=== PATIENT | female | born 1945 | race Caucasian/White ===

== ENCOUNTER 2018-02-22 07:41 | Emergency (ER) | payer MEDICARE, OTHER ==
[2018-02-22 08:06] LABS: ADD MAN DIFF? NO
[2018-02-22 08:07] LABS: WHITE BLOOD COUNT 6.9 10^3/ul (4.8-10.8)
[2018-02-22 08:07] LABS: BASOPHILS % 0.6 % (0.0-2.0); EOSINOPHILS # 0.1 10^3/ul (0.0-0.5); HEMATOCRIT 37.1 % (37.0-47.0); HEMOGLOBIN 12.2 g/dl (12.0-16.0); LYMPHOCYTES # 2.4 10^3/ul (0.8-2.9); LYMPHOCYTES % 34.7 % (15.0-51.0); MEAN CORPUSCULAR HEMOGLOBIN 30.1 pg (29.0-33.0); MEAN CORPUSCULAR HGB CONC 32.9 g/dl (32.0-37.0); MEAN CORPUSCULAR VOLUME 91.6 fl (82.0-101.0); MEAN PLATELET VOLUME 10.9 fl (7.4-10.4); MONOCYTE # 0.6 10^3/ul (0.3-0.9); MONOCYTES % 8.9 % (0.0-11.0); NEUTROPHIL # 3.7 10^3/ul (1.6-7.5); NEUTROPHILS % 53.1 % (39.0-77.0); PLATELET COUNT 190 10^3/UL (140-415); RED BLOOD COUNT 4.05 10^6/ul (4.20-5.40); RED CELL DISTRIBUTION WIDTH 12.7 % (11.5-14.5)
[2018-02-22 08:33] LABS: INR 0.87; PROTIME 11.9 Sec (11.9-14.9); PT RATIO 0.9
[2018-02-22 08:34] LABS: PARTIAL THROMBOPLASTIN TIME 32.3 Sec (25.0-35.0)
[2018-02-22 08:35] LABS: ANION GAP 16 (8-16); BLOOD UREA NITROGEN 23 mg/dl (7-20); CALCIUM 9.2 mg/dl (8.4-10.2); CARBON DIOXIDE 24 mmol/L (21-31); CHLORIDE 103 mmol/L (97-110); CHOL/HDL RATIO 6.3 RATIO; CHOLESTEROL 247 mg/dl (100-200); CREATININE 0.87 mg/dl (0.44-1.00); GLUCOSE 236 mg/dl (70-220); HDL CHOLESTEROL 39 mg/dl (33-92); LDL CHOLESTEROL,CALCULATED 137 mg/dl; SODIUM 139 mmol/L (135-144); TRIGLYCERIDES 353 mg/dl (0-149)
[2018-02-22] MEDS: SOD CHLORIDE 0.9% 1,000 ML IV (08:37)
[2018-02-22] MEDS: MECLIZINE 12.5 MG TAB PO (08:37)
[2018-02-22] MEDS: ONDANSETRON 4 MG INJ IV (08:37)
[2018-02-22 08:46] LABS: TROPONIN-I < 0.010 ng/ml (0.000-0.120)
[2018-02-22 10:40] LABS: HEMOGLOBIN A1C 8.9 % (0-5.9)
== END 2018-02-22 10:10 | disposition home or self-care (01) ==
LOC: E/R 07:41
DX: R42 Dizziness and giddiness (principal); I10 Essential (primary) hypertension; E11.9 Type 2 diabetes mellitus without complications; R11.0 Nausea; R07.9 Chest pain, unspecified; Z79.84 Long term (current) use of oral hypoglycemic drugs
CPT/HCPCS: 36415; 70450; 71045; 80048; 80061; 83036; 84484; 85025; 85610; 85730; 93005; 96374; 99285-25

== ENCOUNTER 2018-08-17 04:44 | Emergency (ER) | payer MEDICARE, OTHER ==
[2018-08-17 05:47] LABS: ADD MAN DIFF? NO
[2018-08-17 06:11] LABS: ALANINE AMINOTRANSFERASE 14 IU/L (13-69); ALBUMIN 4.1 g/dl (3.3-4.9); ALBUMIN/GLOBULIN RATIO 1.07; ALKALINE PHOSPHATASE 108 IU/L (42-121); ANION GAP 9 (5-13); ASPARTATE AMINO TRANSFERASE 22 IU/L (15-46); BILIRUBIN,INDIRECT 0.2 mg/dl (0-1.1); BILIRUBIN,TOTAL 0.2 mg/dl (0.2-1.3); BLOOD UREA NITROGEN 20 mg/dl (7-20); CALCIUM 9.8 mg/dl (8.4-10.2); CARBON DIOXIDE 27 mmol/L (21-31); CHLORIDE 103 mmol/L (97-110); CHOL/HDL RATIO 6.2 RATIO; CHOLESTEROL 255 mg/dl (100-200); CREATININE 0.78 mg/dl (0.44-1.00); GLUCOSE 241 mg/dl (70-220); HDL CHOLESTEROL 41 mg/dl (33-92); LDL CHOLESTEROL,CALCULATED 170 mg/dl; POTASSIUM 4.7 mmol/L (3.5-5.1); SODIUM 139 mmol/L (135-144); TOTAL PROTEIN 7.9 g/dl (6.1-8.1); TRIGLYCERIDES 219 mg/dl (0-149)
[2018-08-17] MEDS: METOPROLOL 5 MG INJ IV ×2 (06:12→06:35)
[2018-08-17] MEDS: ONDANSETRON 4 MG INJ IV (06:17)
[2018-08-17 06:21] LABS: WHITE BLOOD COUNT 10.5 10^3/ul (4.8-10.8)
[2018-08-17 06:21] LABS: BASOPHILS % 0.3 % (0.0-2.0); EOSINOPHILS # 0.1 10^3/ul (0.0-0.5); EOSINOPHILS % 0.9 % (0.0-7.0); HEMATOCRIT 38.8 % (37.0-47.0); HEMOGLOBIN 12.5 g/dl (12.0-16.0); LYMPHOCYTES # 1.4 10^3/ul (0.8-2.9); LYMPHOCYTES % 13.5 % (15.0-51.0); MEAN CORPUSCULAR HEMOGLOBIN 30.1 pg (29.0-33.0); MEAN CORPUSCULAR HGB CONC 32.2 g/dl (32.0-37.0); MEAN CORPUSCULAR VOLUME 93.5 fl (82.0-101.0); MEAN PLATELET VOLUME 12.2 fl (7.4-10.4); MONOCYTE # 0.6 10^3/ul (0.3-0.9); MONOCYTES % 5.3 % (0.0-11.0); NEUTROPHIL # 8.4 10^3/ul (1.6-7.5); NEUTROPHILS % 79.7 % (39.0-77.0); RED BLOOD COUNT 4.15 10^6/ul (4.20-5.40); RED CELL DISTRIBUTION WIDTH 12.7 % (11.5-14.5); TROPONIN-I < 0.012 ng/ml (0.000-0.120)
[2018-08-17 06:23] LABS: POSITIVE DIFF @See below
[2018-08-17 06:59] LABS: INR 0.91; PROTIME 12.4 Sec (11.9-14.9)
[2018-08-17 07:00] LABS: PARTIAL THROMBOPLASTIN TIME 30.7 Sec (23.0-35.0)
[2018-08-17 07:09] LABS: HEMOGLOBIN A1C 8.4 % (0-5.9)
[2018-08-17 07:10] LABS: PLATELET COUNT 192 10^3/UL (140-415)
[2018-08-17] MEDS: METOCLOPRAMIDE 10 MG INJ IV (07:18)
[2018-08-17] MEDS: DIPHENHYDRAMINE 50 MG INJ IV (07:18)
[2018-08-17] MEDS: KETOROLAC 30 MG INJ IV (07:19)
[2018-08-17 07:46] LABS: ANISOCYTOSIS 1+ (0-0); BAND NEUTROPHILS #M 0.4 10^3/ul (0.0-0.6); BAND NEUTROPHILS % (M) 4 % (0-4); BASOPHIL #M 0.2 10^3/ul (0.0-0.0); BASOPHILS % (M) 2 % (0-2); BURR CELLS 1+ (0-0); EOSINOPHILS % (M) 2 % (0-7); GIANT THROMBO% (M) 1 % (0-0); LYMPHOCYTES % (M) 10 % (15-51); MICROCYTOSIS 1+ (0-0); MONOCYTE #M 0.6 10^3/ul (0.3-0.9); MONOCYTES % (M) 6 % (0-11); PLATELET ESTIMATE NORMAL; REACTIVE LYMPHOCYTES #M 0.6 10^3/ul (0.0-0.0); REACTIVE LYMPHOCYTES% (M) 6 % (0-0); SEG NEUT #M 7.4 10^3/ul (1.6-7.5); SEGMENTED NEUTROPHILS (M) % 70 % (39-77); SMUDGE%M 8 % (0-0)
== END 2018-08-17 08:30 | disposition home or self-care (01) ==
LOC: E/R 04:44
DX: I10 Essential (primary) hypertension (principal); R51 Headache; E11.9 Type 2 diabetes mellitus without complications; Z79.84 Long term (current) use of oral hypoglycemic drugs
CPT/HCPCS: 36415; 70450; 71045; 80053; 80061; 82962; 83036; 84484; 85025; 85610; 85730; 93005; 96374; 96375; 96376; 99285-25

== ENCOUNTER 2018-08-18 20:44 | Emergency (ER) | payer MEDICARE, OTHER ==
[2018-08-18 21:52] LABS: ADD MAN DIFF? NO
[2018-08-18] MEDS: METOCLOPRAMIDE 10 MG INJ IV (21:52)
[2018-08-18] MEDS: DIPHENHYDRAMINE 50 MG INJ IV (21:52)
[2018-08-18 21:53] LABS: WHITE BLOOD COUNT 10.4 10^3/ul (4.8-10.8)
[2018-08-18 21:53] LABS: BASOPHILS % 0.3 % (0.0-2.0); EOSINOPHILS # 0.2 10^3/ul (0.0-0.5); EOSINOPHILS % 1.7 % (0.0-7.0); HEMATOCRIT 37.6 % (37.0-47.0); LYMPHOCYTES # 2.1 10^3/ul (0.8-2.9); LYMPHOCYTES % 19.8 % (15.0-51.0); MEAN CORPUSCULAR HEMOGLOBIN 29.6 pg (29.0-33.0); MEAN CORPUSCULAR HGB CONC 31.9 g/dl (32.0-37.0); MEAN CORPUSCULAR VOLUME 92.8 fl (82.0-101.0); MEAN PLATELET VOLUME 11.5 fl (7.4-10.4); MONOCYTES % 9.5 % (0.0-11.0); NEUTROPHIL # 7.1 10^3/ul (1.6-7.5); NEUTROPHILS % 68.3 % (39.0-77.0); PLATELET COUNT 208 10^3/UL (140-415); RED BLOOD COUNT 4.05 10^6/ul (4.20-5.40); RED CELL DISTRIBUTION WIDTH 12.6 % (11.5-14.5)
[2018-08-18] MEDS: hydrALAzine 20 MG INJ IV (21:53)
[2018-08-18 22:12] LABS: INR 0.89; PROTIME 12.2 Sec (11.9-14.9)
[2018-08-18 22:13] LABS: PARTIAL THROMBOPLASTIN TIME 34.8 Sec (23.0-35.0)
[2018-08-18 22:16] LABS: ANION GAP 10 (5-13); BLOOD UREA NITROGEN 22 mg/dl (7-20); CALCIUM 9.8 mg/dl (8.4-10.2); CARBON DIOXIDE 26 mmol/L (21-31); CHLORIDE 103 mmol/L (97-110); CREATININE 0.86 mg/dl (0.44-1.00); GLUCOSE 229 mg/dl (70-220); POTASSIUM 4.2 mmol/L (3.5-5.1); SODIUM 139 mmol/L (135-144)
== END 2018-08-18 23:19 | disposition home or self-care (01) ==
LOC: E/R 20:44
DX: I10 Essential (primary) hypertension (principal); E11.9 Type 2 diabetes mellitus without complications; Z79.84 Long term (current) use of oral hypoglycemic drugs
CPT/HCPCS: 36415; 80048; 85025; 85610; 85730; 93005; 96374; 96375; 99284-25

== ENCOUNTER 2018-08-19 15:58 | Inpatient (IN) | payer MEDICARE, OTHER ==
[2018-08-19] MEDS: LABETALOL HCL 20MG INJ IV (20:21)
[2018-08-19 20:27] LABS: ADD MAN DIFF? NO
[2018-08-19 20:34] LABS: BASOPHILS % 0.4 % (0.0-2.0); EOSINOPHILS # 0.1 10^3/ul (0.0-0.5); EOSINOPHILS % 1.1 % (0.0-7.0); HEMATOCRIT 40.8 % (37.0-47.0); HEMOGLOBIN 13.3 g/dl (12.0-16.0); LYMPHOCYTES # 2.4 10^3/ul (0.8-2.9); LYMPHOCYTES % 23.9 % (15.0-51.0); MEAN CORPUSCULAR HEMOGLOBIN 29.9 pg (29.0-33.0); MEAN CORPUSCULAR HGB CONC 32.6 g/dl (32.0-37.0); MEAN CORPUSCULAR VOLUME 91.7 fl (82.0-101.0); MEAN PLATELET VOLUME 11.1 fl (7.4-10.4); MONOCYTE # 0.9 10^3/ul (0.3-0.9); MONOCYTES % 8.6 % (0.0-11.0); NEUTROPHIL # 6.5 10^3/ul (1.6-7.5); NEUTROPHILS % 65.8 % (39.0-77.0); PLATELET COUNT 200 10^3/UL (140-415); RED BLOOD COUNT 4.45 10^6/ul (4.20-5.40); RED CELL DISTRIBUTION WIDTH 12.7 % (11.5-14.5)
[2018-08-19 20:34] LABS: WHITE BLOOD COUNT 9.9 10^3/ul (4.8-10.8)
[2018-08-19 20:52] LABS: ANION GAP 12 (5-13); BLOOD UREA NITROGEN 19 mg/dl (7-20); CALCIUM 10.5 mg/dl (8.4-10.2); CARBON DIOXIDE 23 mmol/L (21-31); CHLORIDE 101 mmol/L (97-110); CREATININE 0.84 mg/dl (0.44-1.00); GLUCOSE 148 mg/dl (70-220); SODIUM 136 mmol/L (135-144)
[2018-08-19 21:02] LABS: TROPONIN-I < 0.012 ng/ml (0.000-0.120)
[2018-08-19] MEDS ORDERED: ACETAMINOPHEN 325 MG TAB PO (21:30)
[2018-08-19] MEDS ORDERED: ONDANSETRON 4 MG INJ IV (21:30)
[2018-08-19] MEDS ORDERED: HYDROCODONE/APAP (5/325) TAB PO ×2 (23:30)
[2018-08-19] MEDS ORDERED: GLUCOSE GEL 15 GRAM TUBE BUCCAL (23:45)
[2018-08-19] MEDS ORDERED: GLUCAGON 1 MG INJ IM (23:45)
[2018-08-19] MEDS ORDERED: GLUCOSE GEL 15 GRAM TUBE PO ×2 (23:45)
[2018-08-19] MEDS ORDERED: DEXTROSE 50% 50 ML SYRINGE IV ×2 (23:45)
[2018-08-20] MEDS ORDERED: NACL 0.9% 3 ML SYG IV (00:30)
[2018-08-20] MEDS ORDERED: ALBUTEROL/IPRATROPIUM (NEB) 3 ML AMP HHN (00:30)
[2018-08-20] MEDS: ACCU-CHEK XX (01:59)
[2018-08-20 06:24] LABS: ADD MAN DIFF? NO
[2018-08-20 06:37] LABS: WHITE BLOOD COUNT 9.4 10^3/ul (4.8-10.8)
[2018-08-20 06:37] LABS: BASOPHILS % 0.4 % (0.0-2.0); EOSINOPHILS # 0.1 10^3/ul (0.0-0.5); EOSINOPHILS % 1.1 % (0.0-7.0); HEMATOCRIT 39.8 % (37.0-47.0); LYMPHOCYTES # 1.8 10^3/ul (0.8-2.9); MEAN CORPUSCULAR HEMOGLOBIN 29.8 pg (29.0-33.0); MEAN CORPUSCULAR HGB CONC 32.7 g/dl (32.0-37.0); MEAN CORPUSCULAR VOLUME 91.3 fl (82.0-101.0); MEAN PLATELET VOLUME 11.7 fl (7.4-10.4); MONOCYTE # 0.9 10^3/ul (0.3-0.9); MONOCYTES % 9.1 % (0.0-11.0); NEUTROPHIL # 6.6 10^3/ul (1.6-7.5); NEUTROPHILS % 70.1 % (39.0-77.0); PLATELET COUNT 202 10^3/UL (140-415); RED BLOOD COUNT 4.36 10^6/ul (4.20-5.40); RED CELL DISTRIBUTION WIDTH 12.5 % (11.5-14.5)
[2018-08-20 06:47] LABS: ALANINE AMINOTRANSFERASE 16 IU/L (13-69); ALBUMIN 4.1 g/dl (3.3-4.9); ALKALINE PHOSPHATASE 90 IU/L (42-121); ANION GAP 12 (5-13); ASPARTATE AMINO TRANSFERASE 15 IU/L (15-46); BILIRUBIN,INDIRECT 0.4 mg/dl (0-1.1); BILIRUBIN,TOTAL 0.4 mg/dl (0.2-1.3); BLOOD UREA NITROGEN 21 mg/dl (7-20); CALCIUM 10.1 mg/dl (8.4-10.2); CARBON DIOXIDE 27 mmol/L (21-31); CHLORIDE 99 mmol/L (97-110); CHOL/HDL RATIO 6.5 RATIO; CHOLESTEROL 262 mg/dl (100-200); CREATININE 0.83 mg/dl (0.44-1.00); GLUCOSE 187 mg/dl (70-220); HDL CHOLESTEROL 40 mg/dl (33-92); LDL CHOLESTEROL,CALCULATED 171 mg/dl; POTASSIUM 4.4 mmol/L (3.5-5.1); SODIUM 138 mmol/L (135-144); TOTAL PROTEIN 7.5 g/dl (6.1-8.1); TRIGLYCERIDES 254 mg/dl (0-149)
[2018-08-20 07:17] LABS: HEMOGLOBIN A1C 8.4 % (0-5.9)
[2018-08-20] MEDS: INSULIN ASPART [NOVOLOG] 3 ML PEN SC ×4 (07:44→20:11)
[2018-08-20] MEDS: FAMOTIDINE 20 MG TAB PO ×2 (08:05→20:10)
[2018-08-20] MEDS: metFORMIN 500 MG TAB PO (08:06)
[2018-08-20] MEDS: LOSARTAN 50 MG TAB PO (08:06)
[2018-08-20] MEDS: ATORVASTATIN 10 MG TAB PO (20:10)
[2018-08-20] MEDS: INSULIN GLARGINE [LANTus] (100 UNITS/ML) SYG SC (20:21)
[2018-08-20] MEDS: ONDANSETRON 4 MG INJ IV (22:16)
[2018-08-20] MEDS: ACETAMINOPHEN 325 MG TAB PO (22:17)
[2018-08-21] MEDS: ACCU-CHEK XX (01:59)
[2018-08-21 06:08] LABS: ADD MAN DIFF? NO
[2018-08-21 06:09] LABS: BASOPHILS % 0.4 % (0.0-2.0); EOSINOPHILS # 0.2 10^3/ul (0.0-0.5); EOSINOPHILS % 1.8 % (0.0-7.0); HEMATOCRIT 39.9 % (37.0-47.0); HEMOGLOBIN 13.1 g/dl (12.0-16.0); LYMPHOCYTES # 2.5 10^3/ul (0.8-2.9); LYMPHOCYTES % 30.3 % (15.0-51.0); MEAN CORPUSCULAR HGB CONC 32.8 g/dl (32.0-37.0); MEAN CORPUSCULAR VOLUME 91.3 fl (82.0-101.0); MEAN PLATELET VOLUME 11.6 fl (7.4-10.4); MONOCYTE # 0.9 10^3/ul (0.3-0.9); MONOCYTES % 10.4 % (0.0-11.0); NEUTROPHIL # 4.7 10^3/ul (1.6-7.5); NEUTROPHILS % 56.7 % (39.0-77.0); PLATELET COUNT 210 10^3/UL (140-415); RED BLOOD COUNT 4.37 10^6/ul (4.20-5.40); RED CELL DISTRIBUTION WIDTH 12.6 % (11.5-14.5)
[2018-08-21 06:09] LABS: WHITE BLOOD COUNT 8.2 10^3/ul (4.8-10.8)
[2018-08-21 06:31] LABS: ANION GAP 13 (5-13); BLOOD UREA NITROGEN 35 mg/dl (7-20); CARBON DIOXIDE 26 mmol/L (21-31); CHLORIDE 99 mmol/L (97-110); GLUCOSE 153 mg/dl (70-220); MAGNESIUM 2.2 mg/dl (1.7-2.5); PHOSPHORUS 5.8 mg/dl (2.5-4.9); POTASSIUM 4.7 mmol/L (3.5-5.1); SODIUM 138 mmol/L (135-144)
[2018-08-21] MEDS: LOSARTAN 50 MG TAB PO (08:15)
[2018-08-21] MEDS: FAMOTIDINE 20 MG TAB PO ×2 (08:16→20:05)
[2018-08-21] MEDS: INSULIN ASPART [NOVOLOG] 3 ML PEN SC ×4 (08:41→20:23)
[2018-08-21] MEDS: FISH OIL 1,000 MG CAP PO ×2 (10:13→20:05)
[2018-08-21] MEDS: SOD CHLORIDE 0.9% 500 ML IV ×2 (11:47→14:18)
[2018-08-21 13:24] LABS: BLOOD UREA NITROGEN 38 mg/dl (7-20)
[2018-08-21 13:24] LABS: CREATININE 1.66 mg/dl (0.44-1.00)
[2018-08-21] MEDS: CALCIUM ACETATE 667 MG CAP PO (14:16)
[2018-08-21] MEDS: SOD CHLORIDE 0.9% 1,000 ML IV (14:17)
[2018-08-21 16:17] LABS: ADD UMIC NO; UR ASCORBIC ACID NEGATIVE (NEGATIVE); UR BILIRUBIN (Dip) NEGATIVE (NEGATIVE); UR BLOOD (Dip) NEGATIVE (NEGATIVE); UR CLARITY CLEAR (CLEAR); UR COLOR STRAW (YELLOW); UR GLUCOSE (Dip) NEGATIVE (NEGATIVE); UR KETONES (Dip) NEGATIVE (NEGATIVE); UR LEUKOCYTE ESTERASE (Dip) NEGATIVE Leu/ul (NEGATIVE); UR NITRITE (Dip) NEGATIVE (NEGATIVE); UR TOTAL PROTEIN (Dip) NEGATIVE (NEGATIVE); UR UROBILINOGEN (Dip) NEGATIVE (NEGATIVE)
[2018-08-21 16:43] LABS: CREATININE,URINE RANDOM 73.16 mg/dl (20-320)
[2018-08-21 17:17] LABS: OSMOLALITY,URINE 370 mOsm/kg (250-1200)
[2018-08-21] MEDS: ATORVASTATIN 10 MG TAB PO (20:05)
[2018-08-21] MEDS: INSULIN GLARGINE [LANTus] (100 UNITS/ML) SYG SC (20:24)
[2018-08-22] MEDS: ACCU-CHEK XX (02:20)
[2018-08-22] MEDS: SOD CHLORIDE 0.9% 1,000 ML IV ×2 (02:20→14:24)
[2018-08-22 06:29] LABS: ANION GAP 8 (5-13); BLOOD UREA NITROGEN 28 mg/dl (7-20); CALCIUM 9.3 mg/dl (8.4-10.2); CARBON DIOXIDE 22 mmol/L (21-31); CHLORIDE 110 mmol/L (97-110); CREATININE 1.01 mg/dl (0.44-1.00); GLUCOSE 140 mg/dl (70-220); POTASSIUM 4.6 mmol/L (3.5-5.1); SODIUM 140 mmol/L (135-144)
[2018-08-22] MEDS: INSULIN ASPART [NOVOLOG] 3 ML PEN SC ×2 (08:00→11:45)
[2018-08-22] MEDS: FAMOTIDINE 20 MG TAB PO (08:08)
[2018-08-22] MEDS: AMLODIPINE 5 MG TAB PO (08:08)
[2018-08-22] MEDS: FISH OIL 1,000 MG CAP PO (08:08)
[2018-08-22] MEDS ORDERED: AMLODIPINE 5 MG TAB NGT (09:00)
[2018-08-30] MEDS ORDERED: INSULIN GLARGINE [LANTus] (100 UNITS/ML) SYG SC (20:00)
== END 2018-08-22 14:20 | disposition home or self-care (01) | DRG 305 ==
LOC: E/R 15:58 → 6WM 21:03
DX: I16.0 Hypertensive urgency (principal); I16.1 Hypertensive emergency; N17.9 Acute kidney failure, unspecified; I10 Essential (primary) hypertension; K21.9 Gastro-esophageal reflux disease without esophagitis; K29.60 Other gastritis without bleeding; E78.5 Hyperlipidemia, unspecified; E78.00 Pure hypercholesterolemia, unspecified; E66.9 Obesity, unspecified; Z68.32 Body mass index [BMI] 32.0-32.9, adult; E83.39 Other disorders of phosphorus metabolism; E11.319 Type 2 diabetes mellitus with unspecified diabetic retinopathy without macular edema
CPT/HCPCS: 36415; 70450; 76775; 80048; 80053; 80061; 81003; 82565; 82962; 83036; 83735; 83935; 84100; 84155; 84443; 84484; 84520; 85025; 93005; 93306; 93880; 97161; 99217; 99285-25